=== PATIENT | male | born 1980 | race Hispanic/Latino ===

== ENCOUNTER 2018-05-07 11:06 | Emergency (ER) | payer OTHER ==
[2018-05-07 11:06] VITALS: BMI 50.5
[2018-05-07 11:22] VITALS: RESP 18
[2018-05-07 12:28] LABS: BASO # 0.1 K/uL (0.0-0.2); BASO % 0.7 % (0.0-2.0); EOS # 0.5 K/uL (0.0-0.7); EOS % 4.7 % (0.0-4.0); HEMOGLOBIN 13.7 g/dL (12.0-18.0); LYMPH # 2.6 K/uL (1.0-4.3); MEAN CORPUSCULAR HEMOGLOBIN 26.7 pg (27.0-31.0); MEAN PLATELET VOLUME 8.1 fl (7.2-11.7); MONO # 0.9 K/uL (0.0-0.8); MONO % 7.8 % (0.0-10.0); NEUT # 7.2 K/uL (1.8-7.0); NEUT % 63.8 % (50.0-75.0); NRBC % 0.1 % (0.0-0.0); RBC 5.13 Mil/uL (4.40-5.90); RED CELL DISTRIBUTION WIDTH 16.1 % (11.5-14.5); WHITE BLOOD COUNT 11.2 K/uL (4.8-10.8)
[2018-05-07 12:39] LABS: ALBUMIN 4.6 g/dL (3.5-5.0); ALT/SGPT 41 U/L (21-72); AST/SGOT 39 U/L (17-59); BLOOD UREA NITROGEN 13 mg/dl (9-20); CALCIUM 9.8 mg/dL (8.4-10.2); GFR NON-AFRICAN AMERICAN > 60
--- NOTE | 2018-05-07 13:07 | CT ---
Date of service: 05/07/2018 PROCEDURE: CT HEAD WITHOUT CONTRAST. HISTORY: near syncope COMPARISON: None available. TECHNIQUE: Axial computed tomography images were obtained through the head/brain without intravenous contrast. Radiation dose: Total exam DLP = 914.8 mGy-cm. This CT exam was performed using one or more of the following dose reduction techniques: Automated exposure control, adjustment of the mA and/or kV according to patient size, and/or use of iterative reconstruction technique. FINDINGS: HEMORRHAGE: No acute parenchymal, subarachnoid or extra-axial hemorrhage. 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 Associated significant volume loss of periventricular, deep and subcortical white matter right posterior temporoparietal and posterior frontal regions due to the large porencephalic cyst... Slight dilatation of the 3rd ventricle VENTRICLES: As above. CALVARIUM: There are no acute calvarial fractures. PARANASAL SINUSES: Unremarkable as visualized. No significant inflammatory changes. MASTOID AIR CELLS: Unremarkable as visualized. No inflammatory changes. OTHER FINDINGS: None. 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 Associated significant volume loss of periventricular, deep and subcortical white matter right posterior temporoparietal and posterior frontal regions due to the large porencephalic cyst. There is also slight dilatation of the 3rd ventricle Nonemergent MRI of the brain recommended further evaluation. No evidence of acute intracranial hemorrhage. Findings discussed with Dr. Cisneros at approximately 1 p.m. with written down and read back verification.
--- NOTE | 2018-05-07 14:43 | ED PDOC ---
HPI: Seizure Time Seen by Provider: 05/07/18 11:24 Chief Complaint (Nursing): Seizure Chief Complaint (Provider): Seizure History Per: Patient History/Exam Limitations: no limitations Recent Seizure Activity Began: Just Before Arrival Number Of Seizures: One Length Of Seizures (Duration): Seconds Additional Complaint(s): 37 year old male, [employer] employee, presents to the emergency department for an evaluation of possible seizure prior to arrival. Patient states he was looking at a nurse's computer screen when he suddenly felt shaking for a few seconds. His co-workers came to his side to evaluate for seizure-like activity. At present, patient offers no physical complaints. He reports history of focal seizures in his early teenage years until the age of 19. He denies taking medication for seizures. PCP: Dr. Rosendo Vasquez Past Medical History Reviewed: Historical Data, Nursing Documentation, Vital Signs Vital Signs: Last Vital Signs Temp 98.8 F 05/07/18 11:32 Pulse 119 H 05/07/18 11:22 Resp 18 05/07/18 11:22 BP 139/75 05/07/18 11:22 Pulse Ox 99 05/07/18 11:22 - Medical History PMH: HTN, Hypercholesterolemia, Seizures (has not had a seizure since 2000) - Family History Family History: States: Unknown Family Hx - Allergies Allergies/Adverse Reactions: Allergies Allergy/AdvReac Type Severity Reaction Status Date / Time phenytoin sodium Allergy unknown Verified 05/07/18 11:21 [From Dilantin] phenytoin sodium extended Allergy unknown Verified 05/07/18 11:21 [From Dilantin] Review of Systems ROS Statement: Except As Marked, All Systems Reviewed And Found Negative Neurological: Positive for: Other (shaking tremors). Negative for: Dizziness (or LOC) Physical Exam - Reviewed Nursing Documentation Reviewed: Yes Vital Signs Reviewed: Yes - Physical Exam Appears: Positive for: Non-toxic, No Acute Distress Head Exam: Positive for: ATRAUMATIC, NORMAL INSPECTION, NORMOCEPHALIC Skin: Positive for: Normal Color Eye Exam: Positive for: Normal appearance, EOMI, PERRL ENT: Positive for: Normal ENT Inspection. Negative for: Pharyngeal Erythema Neck: Positive for: Normal, Supple Cardiovascular/Chest: Positive for: Regular Rate, Rhythm. Negative for: Murmur Respiratory: Positive for: Normal Breath Sounds. Negative for: Respiratory Distress Pulses-Radial (L): 3+/4+ Pulses-Radial (R): 3+/4+ Gastrointestinal/Abdominal: Positive for: Normal Exam, Soft. Negative for: Tenderness Neurological/Psych: Positive for: Awake, Alert, Normal Tone, Oriented (x3). Negative for: Motor/Sensory Deficits - Laboratory Results Result Diagrams: 05/07/18 12:04 05/07/18 12:04 Lab Results: Troponin I < 0.0120 ng/mL (0.00-0.120) 05/07/18 12:04 Total Bilirubin 0.5 mg/dl (0.2-1.3) 05/07/18 12:04 AST 39 U/L (17-59) 05/07/18 12:04 ALT 41 U/L (21-72) 05/07/18 12:04 Alkaline Phosphatase 117 U/L (38-126) 05/07/18 12:04 Total Protein 9.1 G/DL (6.3-8.2) H 05/07/18 12:04 Albumin 4.6 g/dL (3.5-5.0) 05/07/18 12:04 Globulin 4.5 gm/dL (2.2-3.9) H 05/07/18 12:04 Albumin/Globulin Ratio 1.0 (1.0-2.1) 05/07/18 12:04 - ECG O2 Sat by Pulse Oximetry: 99 (RA) Pulse Ox Interpretation: Normal Medical Decision Making Medical Decision Making: Time: 1145 Initial Plan: * CT head * EKG * Labs Time: 1210 --EKG: sinus tachycardia at 119 BMP. Time: 1302 --CT head FINDINGS: HEMORRHAGE: No acute parenchymal, subarachnoid or extra-axial hemorrhage. 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 Associated significant volume loss of periventricular, deep and subcortical white matter right posterior temporoparietal and posterior frontal regions due to the large porencephalic cyst... Slight dilatation of the 3rd ventricle VENTRICLES: As above. CALVARIUM: There are no acute calvarial fractures. PARANASAL SINUSES: Unremarkable as visualized. No significant inflammatory changes. MASTOID AIR CELLS: Unremarkable as visualized. No inflammatory changes. OTHER FINDINGS: None. 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 Associated significant volume loss of periventricular, deep and subcortical white matter right posterior temporoparietal and posterior frontal regions due to the large porencephalic cyst. There is also slight dilatation of the 3rd ventricle Nonemergent MRI of the brain recommended further evaluation. No evidence of acute intracranial hemorrhage. Time: 1452 --Upon provider reevaluation, patient is medically stable, reports improvement in symptoms, and requires no further treatment in the ED at this time. Patient w ill be discharged home and advised to follow up with primary doctor. Counseling was provided and all questions were answered regarding diagnosis. There is agreement to discharge plan. Return if symptoms persist or worsen. Clinical Impression: near syncope Scribe Attestation: Documented by Uma Baxter, acting as a scribe for Radha Cisneros MD. Provider Scribe Attestation: All medical record entries made by the Scribe were at my direction and personally dictated by me. I have reviewed the chart and agree that the record accurately reflects my personal performance of the history, physical exam, medical decision making, and the department course for this patient. I have also personally directed, reviewed, and agree with the discharge instructions and disposition. Disposition - Clinical Impression Clinical Impression: Near syncope - Patient ED Disposition Is Patient to be Admitted: No Doctor Will See Patient In The: Office Counseled Patient/Family Regarding: Diagnosis, Need For Followup, Rx Given - Disposition Referrals: Rosendo Vasquez MD [Family Provider] - Disposition: Routine/Home Disposition Time: 14:52 Condition: STABLE Instructions: Near Fainting Forms: [facility] ([place]), [facility] ED School/Work Excuse - POA Present On Arrival: None
[2018-05-07 15:18] VITALS: BP 133/70; PULSE 88; TEMP 98.3; O2SAT 100
--- NOTE | 2018-05-07 18:41 | CARD ---
APPROVED REPORT Date of service: 05/07/2018 EKG Measurement Heart [id number] NE 142P35 [id number] <Conclusion> Sinus tachycardia ST & T wave abnormality, consider anterolateral ischemia Abnormal ECG
== END 2018-05-07 15:17 | disposition home or self-care (01) ==
LOC: H.ER 11:06
DX: R55 Syncope and collapse (principal); I10 Essential (primary) hypertension; R56.9 Unspecified convulsions